=== PATIENT | female | born 1995 | race American Indian/Alaskan Native ===

== ENCOUNTER 2021-01-10 08:17 | Emergency (ER) | payer SELFPAY ==
--- NOTE | 2021-01-10 09:19 | Emergency Department Report ---
ED General Adult HPI - General Chief complaint: Dizziness Stated complaint: DIZZINESS/HEAD PAIN Time Seen by Provider: 01/10/21 09:01 Source: patient Mode of arrival: Ambulatory Limitations: No Limitations - History of Present Illness Initial comments: 25-year-old female presents to the ER complaining of dizziness and headache for 4 days. She states that over the last 2 months she's had heavy menstrual periods which is not her usual pattern. Her last LMP started on January 06,the first 2 days she states that she bled through 1 pad per hour and passed numerous clots. Patient reports history of miscarriage 2 years ago. She is sexually active not taking any control. she is now complaining of dizziness and generalized headache. she denies chest pain, shortness of breath, nausea, vomiting no abdominal pain . Patient in no acute distress -: Gradual Radiation: non-radiation Improves with: none Worsens with: none Associated Symptoms: headaches. denies: confusion, chest pain, cough, diaphoresis, fever/chills Treatments Prior to Arrival: none - Related Data Allergies Allergy/AdvReac Type Severity Reaction Status Date / Time No Known Allergies Allergy Unverified 01/10/21 08:26 ED Review of Systems ROS: Stated complaint: DIZZINESS/HEAD PAIN Other details as noted in HPI Comment: All other systems reviewed and negative Constitutional: no symptoms reported. denies: chills, malaise, weakness ENT: denies: ear pain, throat pain, dental pain Respiratory: no symptoms reported Cardiovascular: as per HPI. denies: chest pain, palpitations Endocrine: no symptoms reported Gastrointestinal: as per HPI. denies: abdominal pain, nausea, vomiting, constipation, hematemesis Genitourinary: abnormal menses (HEAVY MENSTRUAL BLEEDING OVER LAST 2 MONTHS LASTING 3-4 DAYS). denies: urgency, dysuria, frequency, hematuria Neurological: headache, other (FEELING DIZZY) ED Past Medical Hx - Past Medical History Previous Medical History?: No - Surgical History Past Surgical History?: No - Social History Smoking Status: Never Smoker Substance Use Type: Alcohol ED Physical Exam - General Limitations: No Limitations General appearance: alert, in no apparent distress - Head Head exam: Present: atraumatic - Eye Eye exam: Present: normal appearance, PERRL, EOMI Pupils: Present: normal accommodation - ENT ENT exam: Present: normal exam, mucous membranes moist, TM's normal bilaterally - Neck Neck exam: Present: normal inspection - Respiratory Respiratory exam: Present: normal lung sounds bilaterally. Absent: respiratory distress, chest wall tenderness - Cardiovascular Cardiovascular Exam: Present: regular rate, normal heart sounds - GI/Abdominal GI/Abdominal exam: Absent: soft, distended, tenderness - Rectal Rectal exam: Absent: deferred - Extremities Exam Extremities exam: Present: normal inspection - Back Exam Back exam: Present: normal inspection - Neurological Exam Neurological exam: Present: alert, oriented X3, normal gait - Psychiatric Psychiatric exam: Present: normal affect - Skin Skin exam: Present: warm, dry, intact, normal color ED Course Vital Signs 01/10/21 01/10/21 01/10/21 08:22 10:00 10:14 Temperature 98.5 F 98.1 F Pulse Rate 129 H 97 H Pulse Rate [ Lying] Pulse Rate [ Sitting] Pulse Rate [ Standing] Respiratory 15 16 16 Rate Blood Pressure 124/75 Blood Pressure 126/71 [Left] Blood Pressure [Lying] Blood Pressure [Sitting] Blood Pressure [Standing] O2 Sat by Pulse 100 99 100 Oximetry 01/10/21 01/10/21 10:15 12:16 Temperature 98 F Pulse Rate 98 H Pulse Rate [ 97 H Lying] Pulse Rate [ 110 H Sitting] Pulse Rate [ 115 H Standing] Respiratory 16 Rate Blood Pressure Blood Pressure 120/80 [Left] Blood Pressure 126/71 [Lying] Blood Pressure 125/76 [Sitting] Blood Pressure 121/81 [Standing] O2 Sat by Pulse 99 Oximetry - Reevaluation(s) Reevaluation #1: 01/10/21 11:22 Patient in no acute distress awaiting lab results ED Medical Decision Making - Lab Data Result diagrams: 01/10/21 10:35 01/10/21 10:35 - Medical Decision Making This is a 25-year-old female she reports a 2-month history of heavy menstrual. Lasting 3 to 5 days and passing clots. Patient states that this is a change in her usual menstrual pattern. She is sexually active not using condoms. She denies abdominal pain. Labs reveal negative test hemoglobin is 8.4 and hematocrit is 25.9. She has no urinary tract infection. Patient headache is relieved with Tylenol. She is well-appearing in no acute distress all findings discussed with patient and she is aware that she needs to follow-up with [facility] regarding her heavy bleeding and to start iron tablets for her anemia patient verbalizes understanding of all instructions and she is safe to return home. Critical Care Time: No Critical care attestation.: If time is entered above; I have spent that time in minutes in the direct care of this critically ill patient, excluding procedure time. 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 [place] call on Tuesday to schedule an appointment [phone]. Purchase [id number] iron tablets and take as directed by package insert. Today your hemoglobin is 8.4 the normal range is usually between 10 and 14. This is low but not low enough to require blood transfusion at this time. Please keep yourself well hydrated with fluids. Call and make an appointment with an [facility] and take an iron tablet daily. It is okay for you to take Tylenol as needed for pain headache per directions on the package insert Referrals: WILMER SEN MD [Staff Physician] - 3-5 Days Time of Disposition: 11:51
[2021-01-10 10:56] LABS: Bilirubin,Urine NEG (Negative); Blood,Urine SM (Negative); Color,Urine Straw (Yellow); Mucus,Urine FEW /HPF; Urobilinogen,Urine < 2.0 mg/dL (<2.0)
[2021-01-10 11:04] LABS: Hematocrit 25.9 % (30.3-42.9); Hemoglobin 8.4 gm/dl (10.1-14.3); Mean Corpuscular HGB Conc 33 % (30-34); Mean Corpuscular Volume 91 fl (79-97); Platelet Count 239 K/mm3 (140-440); Red Blood Count 2.85 M/mm3 (3.65-5.03); Red Cell Distribution Width 13.7 % (13.2-15.2)
[2021-01-10 11:17] LABS: BUN/Creatinine Ratio 11; Blood Urea Nitrogen 9 mg/dL (7-17); Calcium 8.9 mg/dL (8.4-10.2); Hemolysis Index 1
[2021-01-10] MEDS ORDERED: ACETAMINOPHEN 325 MG TAB PO ONE (11:37)
[2021-01-10] MEDS ORDERED: ACETAMINOPHEN 325 MG TAB ONE (11:41)
[2021-01-10 12:17] VITALS: BP 120/80
== END 2021-01-10 12:17 | disposition home or self-care (01) ==
LOC: ED 08:17
DX: D64.9 Anemia, unspecified (principal); N92.0 Excessive and frequent menstruation with regular cycle
CPT/HCPCS: 36415; 80048; 81001; 84702; 85027